=== PATIENT | female | born 1950 | race Caucasian/White ===

== ENCOUNTER 2018-03-29 22:42 | Emergency (ER) | payer OTHER, MEDICARE ==
[~2018-03-29] VITALS: Ht 167.6 cm; Wt 64.0 kg
[~2018-03-29 22:42] MED LIST: CALC600T4 PO; MULT1TAB52 PO
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
[2018-03-29] MEDS ORDERED: KETOROLAC 60 MG/2 ML VIAL. IM ONE (23:15)
[2018-03-29] MEDS ORDERED: ORPHENADRINE CITRATE 60 MG/2 ML VIAL. IM ONE (23:15)
[2018-03-29] MEDS ORDERED: MORPHINE SULFATE 10 MG/ML SYRINGE. SQ ONE (23:15)
[2018-03-29] MEDS ORDERED: HYDR-79 PO (23:16)
[2018-03-29] MEDS ORDERED: CYCL-331 PO (23:16)
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
[2018-03-30 01:02] VITALS: BP 162/83
== END 2018-03-30 00:43 | disposition home or self-care (01) ==
LOC: ER 22:42
DX: S33.5XXA Sprain of ligaments of lumbar spine, initial encounter (principal); S13.4XXA Sprain of ligaments of cervical spine, initial encounter; V43.52XA Car driver injured in collision with other type car in traffic accident, initial encounter; Y93.I9 Activity, other involving external motion; Y99.8 Other external cause status; Y92.488 Other paved roadways as the place of occurrence of the external cause; Z88.0 Allergy status to penicillin
CPT/HCPCS: 72125; 72131; 96372; 99284; J1885; J2270; J2360